=== PATIENT | male | born 1955 | race Caucasian/White ===

== ENCOUNTER 2016-09-17 16:12 | Emergency (ER) | payer OTHER ==
[~2016-09-17] VITALS: Ht 182.9 cm; Wt 113.4 kg
[~2016-09-17 16:12] MED LIST: /MOXI40TA OR; ASPI81TA83 OR; HYDR25TA6 OR; PERC5TAB8 OR
[2016-09-17] MEDS ORDERED: LIDOCAINE 2% MDV 20 ML VIAL SC ONE (17:30)
[2016-09-17] MEDS ORDERED: ADACEL/BOOSTRIX VACCINE (DIPHTH/PERTUSS/ACELL/TETANUS)0.5ML SYR (90715) IM ONE (17:30)
[2016-09-17] MEDS ORDERED: cefTRIAXone SOD 1 GM VIAL (J0696) IM ONE (17:30)
[2016-09-17] MEDS ORDERED: PERCOCET 5MG/325MG TAB PO ONE (17:30)
[2016-09-17] MEDS ORDERED: LIDOCAINE 1% MDV 20ML VIAL As Ordered ONE (17:46)
[2016-09-17] MEDS ORDERED: KEFL500C7 PO (18:04)
[2016-09-17] MEDS ORDERED: NORCOTAB PO (18:04)
--- NOTE | 2016-09-17 18:14 | REP ---
LEFT FINGERS, FOUR VIEWS: HISTORY: Injury. There is no acute fracture or dislocation. An osteophyte is present on the distal aspect of the first proximal phalange. A defect is present in the soft tissue overlying the distal phalange of the first digit. IMPRESSION: There is no acute fracture or dislocation. Signed by Foreign Manley MD 09/17/2016 06:15 P
[2016-09-17 18:46] VITALS: BP 141/84
== END 2016-09-17 18:46 | disposition home or self-care (01) ==
LOC: M ED 18:11
DX: S68.022A Partial traumatic metacarpophalangeal amputation of left thumb, initial encounter (principal); W27.0XXA Contact with workbench tool, initial encounter; Y92.018 Other place in single-family (private) house as the place of occurrence of the external cause; Y93.89 Activity, other specified; Y99.8 Other external cause status; Z88.8 Allergy status to other drugs, medicaments and biological substances
CPT/HCPCS: 12001; 73140; 90471; 90715; 96372; 99283; J0696

== ENCOUNTER 2016-09-24 12:58 | Emergency (ER) | payer OTHER ==
[~2016-09-24] VITALS: Ht 182.9 cm; Wt 113.4 kg
[~2016-09-24 12:58] MED LIST changes: +KEFL500C7 PO; +NORCOTAB PO
[2016-09-24 12:59] VITALS: BP 149/93
== END 2016-09-24 14:23 | disposition home or self-care (01) ==
LOC: M ED 13:20
DX: Z48.02 Encounter for removal of sutures (principal); Z88.8 Allergy status to other drugs, medicaments and biological substances

== ENCOUNTER → 2016-12-10 | Outpatient (REF) | payer OTHER ==
[~2016-12-10] MED LIST changes: +KEFL500C17 PO; -KEFL500C7 PO
[2016-12-10 11:25] LABS: MEAN CORPUSCULAR HEMOGLOBIN 31.9 pg (27.0-33.0); MEAN CORPUSCULAR HGB CONC 34.5 g/dl (32.0-36.5); MEAN CORPUSCULAR VOLUME 92.5 fl (80.0-96.0); RED CELL DISTRIBUTION WIDTH 12.8 % (11.5-14.5); WHITE BLOOD COUNT 5.1 K/mm3 (4.0-10.0)
[2016-12-10 11:32] LABS: ALBUMIN/GLOBULIN RATIO 1.11 (1.00-1.93); ALKALINE PHOSPHATASE 51 U/L (45-117); ALT/SGPT 29 U/L (12-78); ANION GAP 5 MEQ/L (8-16); AST/SGOT 20 U/L (15-37); BILIRUBIN,TOTAL 0.7 MG/DL (0.2-1.0); BLOOD UREA NITROGEN 22 MG/DL (7-18); CALCIUM LEVEL 9.8 MG/DL (8.8-10.2); CARBON DIOXIDE LEVEL 30 MEQ/L (21-32); CHLORIDE LEVEL 99 MEQ/L (98-107); CHOLESTEROL LEVEL 139 MG/DL (<200); CREATININE FOR GFR 0.94 MG/DL (0.70-1.30); GLOMERULAR FILTRATION RATE > 60.0 (>49); GLUCOSE, FASTING 86 MG/DL (80-110); POTASSIUM SERUM 4.1 MEQ/L (3.5-5.1); SODIUM LEVEL 134 MEQ/L (136-145); TOTAL PROTEIN 7.6 GM/DL (6.4-8.2); TRIGLYCERIDES LEVEL 58 MG/DL (<150)
== END ==
LOC: M SFHCCLAY 08:12
PROVIDERS: ATTEND Nurse Practitioner Family
DX: Z13.0 Encounter for screening for diseases of the blood and blood-forming organs and certain disorders involving the immune mechanism (principal); Z13.1 Encounter for screening for diabetes mellitus; Z13.6 Encounter for screening for cardiovascular disorders; Z13.21 Encounter for screening for nutritional disorder

== ENCOUNTER → 2018-03-17 | Outpatient (REF) | payer OTHER ==
[2018-03-17 11:43] LABS: HEMATOCRIT 44.7 % (42.0-52.0); HEMOGLOBIN 14.8 g/dl (13.5-17.5); MEAN CORPUSCULAR HEMOGLOBIN 30.4 pg (27.0-33.0); MEAN CORPUSCULAR HGB CONC 33.1 g/dl (32.0-36.5); MEAN CORPUSCULAR VOLUME 91.8 fl (80.0-96.0); PLATELET COUNT, AUTOMATED 291 10^3/uL (150-450); RED BLOOD COUNT 4.87 10^6/uL (4.30-6.10); RED CELL DISTRIBUTION WIDTH 13.7 % (11.5-14.5); WHITE BLOOD COUNT 5.9 10^3/uL (4.0-10.0)
[2018-03-17 15:53] LABS: ALBUMIN 3.5 GM/DL (3.2-5.2); ALBUMIN/GLOBULIN RATIO 0.95 (1.00-1.93); ALKALINE PHOSPHATASE 62 U/L (45-117); ALT/SGPT 73 U/L (12-78); ANION GAP 7 MEQ/L (8-16); AST/SGOT 34 U/L (7-37); BILIRUBIN,TOTAL 0.3 MG/DL (0.2-1.0); BLOOD UREA NITROGEN 20 MG/DL (7-18); CALCIUM LEVEL 8.8 MG/DL (8.8-10.2); CARBON DIOXIDE LEVEL 28 MEQ/L (21-32); CHLORIDE LEVEL 106 MEQ/L (98-107); CHOLESTEROL LEVEL 126 MG/DL (<200); CHOLESTEROL RISK RATIO 2.032 (<5); CREATININE FOR GFR 0.93 MG/DL (0.70-1.30); GLOMERULAR FILTRATION RATE > 60.0 (>49); GLUCOSE, FASTING 88 MG/DL (70-100); HDL CHOLESTEROL 62 MG/DL (>40); LDL CHOLESTEROL 47 MG/DL (<100); NON-HDL-C 64 MG/DL; POTASSIUM SERUM 4.6 MEQ/L (3.5-5.1); SODIUM LEVEL 141 MEQ/L (136-145); TOTAL 25(OH) VITAMIN D 23.4 NG/ML (30.0-100.0); TOTAL PROTEIN 7.2 GM/DL (6.4-8.2); TRIGLYCERIDES LEVEL 85 MG/DL (<150)
== END ==
LOC: M SFHCCLAY 08:38
DX: Z13.0 Encounter for screening for diseases of the blood and blood-forming organs and certain disorders involving the immune mechanism (principal); Z13.1 Encounter for screening for diabetes mellitus; Z13.6 Encounter for screening for cardiovascular disorders; E55.9 Vitamin D deficiency, unspecified

== ENCOUNTER 2018-04-10 21:49 | Emergency (ER) | payer OTHER ==
[2018-04-10] MEDS ORDERED: ACETAMINOPHEN 325 MG TAB PO (22:15)
[2018-04-10] MEDS: IPRATROPIUM 0.5MG/ALBUTEROL 2.5MG INH SOL UD 3ML (DUONEB)(J7620) NEB (22:29)
[2018-04-10 22:33] LABS: BASO % 0.3 % (0.0-1.0); EOS % 0.5 % (0.0-3.0); HEMATOCRIT 42.7 % (42.0-52.0); HEMOGLOBIN 14.4 g/dl (13.5-17.5); IMMATURE GRANULOCYTE % 0.3 % (0-3.0); LYMPH # 0.5 10^3/uL (1.5-4.5); LYMPH % 7.6 % (24.0-44.0); MEAN CORPUSCULAR HEMOGLOBIN 29.9 pg (27.0-33.0); MEAN CORPUSCULAR HGB CONC 33.7 g/dl (32.0-36.5); MEAN CORPUSCULAR VOLUME 88.8 fl (80.0-96.0); MONO # 0.7 10^3/uL (0.0-0.8); MONO % 10.3 % (0.0-5.0); NEUTROPHILS # 5.1 10^3/uL (1.8-7.7); PLATELET COUNT, AUTOMATED 187 10^3/uL (150-450); RED BLOOD COUNT 4.81 10^6/uL (4.30-6.10); WHITE BLOOD COUNT 6.3 10^3/uL (4.0-10.0)
[2018-04-10 22:54] LABS: ANION GAP 7 MEQ/L (8-16); BLOOD UREA NITROGEN 14 MG/DL (7-18); CALCIUM LEVEL 8.3 MG/DL (8.8-10.2); CARBON DIOXIDE LEVEL 29 MEQ/L (21-32); CHLORIDE LEVEL 99 MEQ/L (98-107); CREATININE FOR GFR 1.14 MG/DL (0.70-1.30); GLOMERULAR FILTRATION RATE > 60.0 (>49); GLUCOSE, FASTING 101 MG/DL (70-100); SODIUM LEVEL 135 MEQ/L (136-145)
[2018-04-10 22:59] LABS: INFLUENZA A AMPLIFICATION POSITIVE (NEGATIVE); INFLUENZA B AMPLIFICATION NEGATIVE (NEGATIVE)
[2018-04-10] MEDS ORDERED: ALBUTEROL 90 MCG/ACT 8GM HFA INHALER As Ordered (23:20)
[2018-04-10] MEDS: ALBUTEROL 90 MCG/ACT 8GM HFA INHALER INH (23:25)
[2018-04-10] MEDS: OSELTAMIVIR PHOSPHATE 75 MG CAP (TAMIFLU) PO (23:25)
== END 2018-04-10 23:36 | disposition home or self-care (01) ==
LOC: M ED 21:49
DX: J09.X2 Influenza due to identified novel influenza A virus with other respiratory manifestations (principal)
CPT/HCPCS: 71046

== ENCOUNTER → 2018-06-19 | Outpatient (CLI) | payer OTHER ==
[~2018-06-19] MED LIST changes: +OSEL75CA PO
--- NOTE | 2018-06-21 00:32 | ECGEPIP ---
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
== END ==
LOC: M EKG 12:30
PROVIDERS: ATTEND Orthopaedic Surgery
DX: Z01.810 Encounter for preprocedural cardiovascular examination (principal); I10 Essential (primary) hypertension; D17.23 Benign lipomatous neoplasm of skin and subcutaneous tissue of right leg

== ENCOUNTER → 2018-06-29 | Outpatient (REF) | payer OTHER | LOC: M LAB REF 15:52 | PROVIDERS: ATTEND Orthopaedic Surgery | DX: D17.23 Benign lipomatous neoplasm of skin and subcutaneous tissue of right leg (principal) ==

== ENCOUNTER 2018-07-31 06:40 | Day surgery (SDC) | payer OTHER ==
[~2018-07-31] VITALS: Ht 182.9 cm; Wt 117.4 kg
[2018-07-31] MEDS ORDERED: NS 1,000 ML IV ONE (07:15)
[2018-07-31] MEDS ORDERED: LIDOCAINE 2% INJ 100 MG/5 ML SDV (FOR ANES.) As Ordered ONE (07:30)
[2018-07-31] MEDS ORDERED: PROPOFOL 200 MG/20 ML VIAL As Ordered ONE ×2 (07:30→07:49)
--- NOTE | 2018-07-31 07:54 | ROOR ---
Patient Name: Buzz Jones Procedure Date: 07/31/2018 7:32 AM Date of : 1955 Age: 63 Room: [facility] Gender: Male Note Status: Finalized Procedure: Colonoscopy Indications: Screening for colorectal malignant neoplasm Providers: Shaun MCKEON MD Referring MD: Rony Moraes MD ([place]) Requesting Provider: Medicines: Monitored Anesthesia Care Complications: No immediate complications. Procedure: Pre-Anesthesia Assessment: - The heart rate, respiratory rate, oxygen saturations, blood pressure, adequacy of pulmonary ventilation, and response to care were monitored throughout the procedure. The Colonoscope was introduced through the anus and advanced to the cecum, identified by appendiceal orifice and ileocecal valve. The colonoscopy was performed without difficulty. The patient tolerated the procedure well. The quality of the bowel preparation was good. Findings: The perianal and digital rectal examinations were normal. Three semi-sessile polyps were found in the rectum. The polyps were 4 to 8 mm in size. These polyps were removed with a cold snare. Resection and retrieval were complete. A 4 mm polyp was found in the sigmoid colon. The polyp was sessile. The polyp was removed with a cold snare. Resection and retrieval were complete. A 4 mm polyp was found in the appendiceal orifice. The polyp was sessile. The polyp was removed with a cold snare. Resection and retrieval were complete. Small Internal Hemorrhoids. The exam was otherwise without abnormality on direct and retroflexion views. Impression: - Three 4 to 8 mm polyps in the rectum, removed with a cold snare. Resected and retrieved. - One 4 mm polyp in the sigmoid colon, removed with a cold snare. Resected and retrieved. - One 4 mm polyp at the appendiceal orifice, removed with a cold snare. Resected and retrieved. - Small Internal Hemorrhoids. - The examination was otherwise normal on direct and retroflexion views. Recommendation: - Repeat colonoscopy in 3 years for surveillance. - Telephone endoscopist for pathology results in 2 weeks. Shaun Mckeon MD Shaun MCKEON MD 07/31/2018 7:53:56 AM This report has been signed electronically. Number of Addenda: 0 Note Initiated On: 07/31/2018 7:32 AM Estimated Blood Loss: Estimated blood loss: none.
[2018-07-31 08:15] VITALS: BP 134/86
== END 2018-07-31 08:26 | disposition home or self-care (01) ==
LOC: M OPP 06:40
PROVIDERS: ATTEND Internal Medicine Gastroenterology
DX: Z12.11 Encounter for screening for malignant neoplasm of colon (principal); K62.1 Rectal polyp; K63.5 Polyp of colon; D12.1 Benign neoplasm of appendix; K64.8 Other hemorrhoids; Z88.8 Allergy status to other drugs, medicaments and biological substances